=== PATIENT | female | born 1925 | race Caucasian/White ===

== ENCOUNTER 2016-07-21 09:03 | Inpatient (IN) | payer MEDICARE, BC ==
--- NOTE | 2016-07-21 09:39 | EDM.PDOC ---
ED HISTORY OF PRESENT ILLNESS - General Chief Complaint: Respiratory Problem Stated Complaint: SOB Time Seen by Provider: 07/21/16 09:24 Source of Information: Reports: Patient, Family History Limitations: Reports: No limitations - History of Present Illness INITIAL COMMENTS - FREE TEXT/NARRATIVE: History and physical: History of present illness: [89-year-old female is brought to the emergency room by her family member this morning. She complains of shortness of breath and increased swelling to her feet and lower legs. Her feet have been swollen for the past 3-4 days but shortness of breath began this morning. She wears home oxygen just at nighttime , and O2 sat was 99% on 2 L when she presented to the emergency room. She denies any chest pain, cough, sputum production, and difficulty breathing. Her appetite has been normal. She's had no problem with bowel or bladder. No abdominal pain. She's otherwise been well. No fever or chills, recent illness or infection.] Review of Systems: As per history of present illness and below otherwise all systems reviewed and negative. Past medical history: As per history of present illness and as reviewed below otherwise noncontributory. Surgical history: As per history of present illness and is reviewed below other diaz noncontributory. Social history: No reported history of drug or alcohol abuse. Family history: As per history of present illness and is reviewed below otherwise noncontributory. Physical exam: Gen.: Well-developed well-nourished elderly female in no acute distress. HEENT: Atraumatic, normocephalic. negative for conjunctival pallor or scleral icterus. mucous membranes moist. Lungs: Diminished throughout lung bases bilaterally, otherwise clear to auscultation. No wheezing rhonchi or rales are appreciated. Heart: S1-S2, regular rate and rhythm. negative for clicks, rubs, or JVD. Abdomen: Normoactive bowel sounds. Abdomen is soft, nondistended. is mildly tender over the suprapubic area with palpation. Negative for masses or hepatosplenomegaly. Negative for costovertebral tenderness. Pelvis: Stable, nontender. Genitourinary: Deferred. Rectal: Deferred. Extremities atraumatic, negative for cords or calf pain. Neurovascular unremarkable. Neuro: Awake, alert, oriented. Cranial nerves II through XII unremarkable. Cerebellum unremarkable. Motor and sensory unremarkable throughout. Exam nonfocal. Diagnostics: Chest x-ray, EKG, CK, troponin, UA, CBC, BMP, INR/PT, LDH, BNP. Impression: [CHF Renal Insufficiency UTI] Plan: [Lab results are discussed with patient and her family member. Offered inpatient treatment and monitoring with patient and family are in agreement. She will be admitted for IV diuretics, fluids and antibiotics. All patient's questions are answered and concerns are addressed. Use this note for inpatient H&P] Definitive disposition and diagnosis is appropriate pending reevaluation and review of above. - Related Data Allergies/ADRs: Allergies Allergy/AdvReac Type Severity Reaction Status Date / Time Sulfa (Sulfonamide Allergy Hives Verified 07/21/16 09:20 Antibiotics) Home Meds: Home Meds Acetaminophen [Tylenol Extra Strength] 500 mg PO ASDIRECTED PRN 01/17/16 [ History] Allopurinol [Zyloprim] 100 mg PO DAILY 01/17/16 [History] Aspirin [Adult Low Dose Aspirin EC] 81 mg PO DAILY 01/17/16 [History] Carvedilol 6.25 mg PO BID 01/17/16 [History] Fosinopril Sodium 20 tab PO DAILY 01/17/16 [History] Furosemide [Lasix] 80 mg PO BID 01/17/16 [History] Simvastatin [Zocor] 20 mg PO BEDTIME 01/17/16 [History] Multivit-Min/FA/Lycopene/Lut [Centrum Silver Tablet] 1 tab PO DAILY 07/21/16 [ History] Past Medical History Other Cardiovascular History: open heart surgery 8 years ago. Respiratory History: Reports: None Gastrointestinal History: Reports: Bowel obstruction Musculoskeletal History: Reports: Arthritis Neurological History: Reports: None Social & Family History - Family History Family Medical History: Noncontributory - Tobacco Use Smoking Status *Q: Never Smoker Second Hand Smoke Exposure: No - Recreational Drug Use Recreational Drug Use: No ED ROS GENERAL - Review of Systems Review Of Systems: ROS reveals no pertinent complaints other than HPI. ED EXAM, GENERAL - Physical Exam Exam: See Below Course - Vital Signs Last Recorded V/S: Last Vital Signs Temp 97.5 F 07/21/16 16:00 Pulse 72 07/21/16 16:00 Resp 20 07/21/16 16:00 BP 122/69 07/21/16 16:00 Pulse Ox 98 07/21/16 16:00 - Orders/Labs/Meds Orders: Active Orders 24 hr Category Date Time Status Chest 2V [CR] Stat Exams 07/21/16 09:16 Taken Medication Orders Acetaminophen (Tylenol) 650 mg PO Q4H PRN PRN Reason: Pain (Mild 1-3)/fever Allopurinol (Zyloprim) 100 mg PO DAILY [facility] Last Admin: 07/21/16 14:26 Dose: 100 mg Carvedilol (Coreg) 6.25 mg PO BID [facility] Last Admin: 07/21/16 14:29 Dose: 6.25 mg Docusate Sodium (Colace) 100 mg PO BID PRN PRN Reason: Constipation Last Admin: 07/21/16 14:26 Dose: 100 mg Enoxaparin Sodium (Lovenox) 40 mg SUBCUT Q24H [facility] Last Admin: 07/21/16 14:28 Dose: 40 mg Sodium Chloride (Normal Saline) 1,000 mls @ 75 mls/hr IV ASDIRECTED [facility] Last Admin: 07/21/16 14:22 Dose: 75 mls/hr Ibuprofen (Motrin) 400 mg PO Q6H PRN PRN Reason: Pain (mild 1-3) Lisinopril (Prinivil) 10 mg PO DAILY [facility] Last Admin: 07/21/16 14:27 Dose: 10 mg Ondansetron HCl (Zofran) 4 mg IV Q4H PRN PRN Reason: Nausea/Vomiting Simvastatin (Zocor) 20 mg PO BEDTIME [facility] Labs: Laboratory Tests 07/21/16 07/21/16 07/21/16 Range/Units 09:15 09:15 09:15 WBC 7.1 (5.0-10.0) 10^3/uL RBC 2.95 L (4.00-5.50) 10^6/uL Hgb 9.5 L (12.0-16.0) g/dL Hct 31.7 L (37.0-47.0) % MCV 107.5 H (82.0-94.0) fL MCH 32.2 H (27.0-32.0) pg MCHC 30.0 L (33.0-38.0) g/dL RDW Coeff of Sera 15.6 H (11.0-15.0) % Plt Count 120 L (150-400) 10^3/uL Neut % (Auto) 52.7 (35-85) % Lymph % (Auto) 33.8 (10-55) % [place] % (Auto) 11.6 (0-16) % Eos % (Auto) 1.8 (0-5) % Baso % (Auto) 0.1 (0-3) % Neut # (Auto) 3.71 (1.80-7.00) 10^3/uL Lymph # (Auto) 2.38 (1.00-4.80) 10^3/uL [place] # (Auto) 0.82 H (0.00-0.80) 10^3/uL Eos # (Auto) 0.13 (0.00-0.45) 10^3/uL Baso # (Auto) 0.01 10^3/uL PT 11.6 (9.7-12.3) SEC INR 1.07 (0.92-1.18) Sodium 145 (136-145) mEq/L Potassium 4.7 (3.5-5.0) mEq/L Chloride 103 (98-106) mEq/L Carbon Dioxide 35 H (21-32) mmol/L BUN 80 H* (7-18) mg/dL Creatinine 1.7 H (0.6-1.0) mg/dL Est Cr Clr Drug Dosing 16.11 mL/min Estimated GFR (MDRD) 28 L (>=60) mL/min Glucose 112 H (75-99) mg/dL Calcium 9.2 (8.4-10.1) mg/dL Lactate Dehydrogenase 156 (100-190) U/L Creatine Kinase 22 (21-215) U/L Troponin I 0.035 (0.00-0.06) ng/mL [id number]-[id number]-Rhuwzkzhyyc Pept 6971 H (0-1000) pg/nL Urine Color (YELLOW) Urine Appearance (CLEAR) Urine pH (4.5-8.0) Ur Specific [place] (1.003-1.020) Urine Protein (NEGATIVE) mg/dL Urine Glucose (UA) (NEGATIVE) mg/dL Urine Ketones (NEGATIVE) mg/dL Urine Occult Blood (NEGATIVE) Urine Nitrite (NEGATIVE) Urine Bilirubin (NEGATIVE) Urine Urobilinogen (0.2-1.0) EU/dL Ur Leukocyte Esterase (NEGATIVE) Urine RBC (0-5) /HPF Urine WBC (0-5) /HPF Ur Epithelial Cells (NOT SEEN) /HPF 07/21/16 Range/Units 09:45 WBC (5.0-10.0) 10^3/uL RBC (4.00-5.50) 10^6/uL Hgb (12.0-16.0) g/dL Hct (37.0-47.0) % MCV (82.0-94.0) fL MCH (27.0-32.0) pg MCHC (33.0-38.0) g/dL RDW Coeff of Sera (11.0-15.0) % Plt Count (150-400) 10^3/uL Neut % (Auto) (35-85) % Lymph % (Auto) (10-55) % [place] % (Auto) (0-16) % Eos % (Auto) (0-5) % Baso % (Auto) (0-3) % Neut # (Auto) (1.80-7.00) 10^3/uL Lymph # (Auto) (1.00-4.80) 10^3/uL [place] # (Auto) (0.00-0.80) 10^3/uL Eos # (Auto) (0.00-0.45) 10^3/uL Baso # (Auto) 10^3/uL PT (9.7-12.3) SEC INR (0.92-1.18) Sodium (136-145) mEq/L Potassium (3.5-5.0) mEq/L Chloride (98-106) mEq/L Carbon Dioxide (21-32) mmol/L BUN (7-18) mg/dL Creatinine (0.6-1.0) mg/dL Est Cr Clr Drug Dosing mL/min Estimated GFR (MDRD) (>=60) mL/min Glucose (75-99) mg/dL Calcium (8.4-10.1) mg/dL Lactate Dehydrogenase (100-190) U/L Creatine Kinase (21-215) U/L Troponin I (0.00-0.06) ng/mL [id number]-Xeesxrpcqta Pept (0-1000) pg/nL Urine Color Light yellow (YELLOW) Urine Appearance Cloudy (CLEAR) Urine pH 6.0 (4.5-8.0) Ur Specific [place] 1.010 (1.003-1.020) Urine Protein 100 H (NEGATIVE) mg/dL Urine Glucose (UA) Negative (NEGATIVE) mg/dL Urine Ketones Negative (NEGATIVE) mg/dL Urine Occult Blood Moderate H (NEGATIVE) Urine Nitrite Negative (NEGATIVE) Urine Bilirubin Negative (NEGATIVE) Urine Urobilinogen 0.2 (0.2-1.0) EU/dL Ur Leukocyte Esterase Large H (NEGATIVE) Urine RBC 10-20 H (0-5) /HPF Urine WBC Packed H (0-5) /HPF Ur Epithelial Cells Few H (NOT SEEN) /HPF Meds: Medications Generic Name Dose Route Start Last Admin Trade Name Freq PRN Reason Stop Dose Admin Acetaminophen 650 mg 07/21/16 12:55 Tylenol PO Q4H PRN Pain (Mild 1-3)/fever Allopurinol 100 mg 07/21/16 12:55 07/21/16 14:26 Zyloprim PO 100 mg DAILY ROBINA Administration Carvedilol 6.25 mg 07/21/16 12:55 07/21/16 14:29 Coreg PO 6.25 mg BID ROBINA Administration Docusate Sodium 100 mg 07/21/16 12:55 07/21/16 14:26 Colace PO 100 mg BID PRN Administration Constipation Enoxaparin Sodium 40 mg 07/21/16 12:55 07/21/16 14:28 Lovenox SUBCUT 40 mg Q24H ROBINA Administration Sodium Chloride 1,000 mls @ 75 mls/hr 07/21/16 12:55 07/21/16 14:22 Normal Saline IV 75 mls/hr ASDIRECTED ROBINA Administration Ibuprofen 400 mg 07/21/16 12:55 Motrin PO Q6H PRN Pain (mild 1-3) Lisinopril 10 mg 07/21/16 12:55 07/21/16 14:27 Prinivil PO 10 mg DAILY [facility]INA Administration Ondansetron HCl 4 mg 07/21/16 12:55 Zofran IV Q4H PRN Nausea/Vomiting Simvastatin 20 mg 07/21/16 20:00 Zocor PO BEDTIME [facility] Discontinued Medications Generic Name Dose Route Start Last Admin Trade Name Freq PRN Reason Stop Dose Admin Ceftriaxone Sodium 1 gm 07/21/16 12:55 07/21/16 14:24 Rocephin IV 07/21/16 12:56 1 gm ONETIME ONE Administration Furosemide 40 mg 07/21/16 12:55 07/21/16 14:29 Lasix IVPUSH 07/21/16 12:56 40 mg ONETIME ONE Administration Departure - Departure Time of Disposition: 12:30 Disposition: Admitted As Inpatient 68 Condition: fair Clinical Impression: Renal insufficiency CHF (congestive heart failure) Qualifiers: Congestive heart failure type: unspecified congestive heart failure type Congestive heart failure chronicity: unspecified congestive heart failure chronicity Qualified Code(s): I50.9 - Heart failure, unspecified UTI (urinary tract infection) Qualifiers: Urinary tract infection type: acute cystitis Hematuria presence: without hematuria Qualified Code(s): N30.00 - Acute cystitis without hematuria - My Orders Last 24 Hours: My Active Orders 07/21/16 09:16 Chest 2V [CR] Stat - Assessment/Plan Last 24 Hours: My Active Orders 07/21/16 09:16 Chest 2V [CR] Stat
[2016-07-21] MEDS ORDERED: Docusate Sodium 100 MG Cap PO PRN (12:55)
[2016-07-21] MEDS ORDERED: Ondansetron 4 MG/2 ML SDV IV PRN (12:55)
[2016-07-21] MEDS ORDERED: Ibuprofen 200 MG Tab PO PRN (12:55)
[2016-07-21] MEDS ORDERED: Furosemide 40 MG/4 ML VIAL IVPUSH ONE (12:55)
[2016-07-21] MEDS ORDERED: Lisinopril 10 MG Tab PO SCH (12:55)
[2016-07-21] MEDS ORDERED: cefTRIAXone 1 GM Vial IV ONE (12:55)
[2016-07-21] MEDS: Sodium Chloride 0.9% 1,000 ML IV SCH (14:22)
[2016-07-21] MEDS: Allopurinol 100 MG Tab PO SCH (14:26)
[2016-07-21] MEDS: Enoxaparin 40 MG/0.4 ML Syringe SUBCUT SCH (14:28)
[2016-07-21] MEDS: Carvedilol 6.25 MG Tab PO SCH ×2 (14:29→20:10)
[2016-07-21] MEDS: Simvastatin 20 MG Tab PO SCH (20:10)
[2016-07-22] MEDS: Sodium Chloride 0.9% 1,000 ML IV SCH (03:47)
[2016-07-22] MEDS: Carvedilol 6.25 MG Tab PO SCH ×2 (08:44→20:35)
[2016-07-22] MEDS: Allopurinol 100 MG Tab PO SCH (08:44)
[2016-07-22] MEDS: cefTRIAXone 1 GM Vial IV SCH (08:47)
[2016-07-22] MEDS ORDERED: Furosemide 40 MG/4 ML VIAL IVPUSH ONE (09:06)
[2016-07-22] MEDS: Enoxaparin 40 MG/0.4 ML Syringe SUBCUT SCH (13:14)
[2016-07-22] MEDS ORDERED: Bumetanide 1 MG Tab ONE (14:05)
[2016-07-22] MEDS ORDERED: Lisinopril 10 MG Tab PO SCH (14:15)
[2016-07-22] MEDS ORDERED: Nystatin Topical Powder 15 GM Bottle ONE (14:20)
--- NOTE | 2016-07-22 14:20 | PCM.PN ---
- General Info Date of Service: 07/22/16 Admission Dx/Problem (Free Text): CHF, renal insufficiency, UTI Subjective Update: Pt is more SOA this morning. Nursing staff report more diminished lung sounds. BNP is increased to 12,971. BUN is 77. Creatinine is 1.8. Na is up today at 148. - Review of Systems General: Reports: No Symptoms HEENT: Reports: no symptoms Pulmonary: Reports: shortness of breath, cough (wet), wheezing. Denies: sputum Cardiovascular: Reports: Edema (above knees, bilat). Denies: Chest Pain Gastrointestinal: Reports: No symptoms Genitourinary: Reports: frequency Neurological: Reports: No Symptoms Psychiatric: Reports: no symptoms - Patient Data Vitals - most recent: Last Vital Signs Temp 98.1 F 07/22/16 11:54 Pulse 73 07/22/16 11:54 Resp 20 07/22/16 11:54 BP 110/55 L 07/22/16 11:54 Pulse Ox 96 07/22/16 11:54 Weight - most recent: 160 lb 12.8 oz I&O - last 24 hours: Intake & Output 07/21/16 07/22/16 07/22/16 22:59 06:59 14:59 Intake Total 100 2200 Output Total 350 500 Balance -250 1700 Lab Results last 24 hrs: Laboratory Results - last 24 hr 07/22/16 07/22/16 Range/Units 06:50 06:50 WBC 5.5 (5.0-10.0) 10^3/uL RBC 2.63 L (4.00-5.50) 10^6/uL Hgb 8.6 L (12.0-16.0) g/dL Hct 29.1 L (37.0-47.0) % MCV 110.6 H (82.0-94.0) fL MCH 32.7 H (27.0-32.0) pg MCHC 29.6 L (33.0-38.0) g/dL RDW Coeff of Sera 15.9 H (11.0-15.0) % Plt Count 103 L (150-400) 10^3/uL Neut % (Auto) 53.9 (35-85) % Lymph % (Auto) 28.7 (10-55) % [place] % (Auto) 15.5 (0-16) % Eos % (Auto) 1.4 (0-5) % Baso % (Auto) 0.5 (0-3) % Neut # (Auto) 2.98 (1.80-7.00) 10^3/uL Lymph # (Auto) 1.59 (1.00-4.80) 10^3/uL [place] # (Auto) 0.86 H (0.00-0.80) 10^3/uL Eos # (Auto) 0.08 (0.00-0.45) 10^3/uL Baso # (Auto) 0.03 10^3/uL Sodium 148 H (136-145) mEq/L Potassium 4.4 (3.5-5.0) mEq/L Chloride 108 H (98-106) mEq/L Carbon Dioxide 34 H (21-32) mmol/L BUN 77 H* (7-18) mg/dL Creatinine 1.8 H (0.6-1.0) mg/dL Est Cr Clr Drug Dosing 15.22 mL/min Estimated GFR (MDRD) 26 L (>=60) mL/min Glucose 105 H (75-99) mg/dL Calcium 8.5 (8.4-10.1) mg/dL Total Bilirubin 0.4 (0.0-1.0) mg/dL AST 32 (15-37) U/L ALT 27 (12-78) U/L Alkaline Phosphatase 72 (46-116) U/L Daa-A-Bnumboxtahi Pept 47507 H (0-1000) pg/nL Total Protein 6.1 L (6.4-8.2) g/dL Albumin 3.0 L (3.4-5.0) g/dL Med Orders - Current: Current Medications Acetaminophen (Tylenol) 650 mg PO Q4H PRN PRN Reason: Pain (Mild 1-3)/fever Allopurinol (Zyloprim) 100 mg PO DAILY [facility] Last Admin: 07/22/16 08:44 Dose: 100 mg Bumetanide (Bumex) 2 mg .XX ONETIME ONE Stop: 07/22/16 14:06 Carvedilol (Coreg) 6.25 mg PO BID [facility] Last Admin: 07/22/16 08:44 Dose: 6.25 mg Ceftriaxone Sodium (Rocephin) 1 gm IV Q24H [facility] Last Admin: 03/26/17 08:47 Dose: 1 gm Docusate Sodium (Colace) 100 mg PO BID PRN PRN Reason: Constipation Last Admin: 07/21/16 14:26 Dose: 100 mg Enoxaparin Sodium (Lovenox) 40 mg SUBCUT Q24H [facility] Last Admin: 07/22/16 13:14 Dose: 40 mg Ibuprofen (Motrin) 400 mg PO Q6H PRN PRN Reason: Pain (mild 1-3) Lisinopril (Prinivil) 10 mg PO DAILY [facility] Nystatin (Nystop) 0 gm TOP BID [facility] Ondansetron HCl (Zofran) 4 mg IV Q4H PRN PRN Reason: Nausea/Vomiting Potassium Chloride (Klor-Con 10) 20 meq PO DAILY [facility] Simvastatin (Zocor) 20 mg PO BEDTIME [facility] Last Admin: 07/21/16 20:10 Dose: 20 mg Discontinued Medications Ceftriaxone Sodium (Rocephin) 1 gm IV ONETIME ONE Stop: 07/21/16 12:56 Last Admin: 07/21/16 14:24 Dose: 1 gm Furosemide (Lasix) 40 mg IVPUSH ONETIME ONE Stop: 07/21/16 12:56 Last Admin: 07/21/16 14:29 Dose: 40 mg Furosemide (Lasix) 80 mg IVPUSH ONETIME ONE Stop: 07/22/16 09:07 Last Admin: 07/22/16 09:26 Dose: 80 mg Sodium Chloride (Normal Saline) 1,000 mls @ 75 mls/hr IV ASDIRECTED [facility] Last Admin: 07/22/16 03:47 Dose: 75 mls/hr Lisinopril (Prinivil) 10 mg PO DAILY [facility] Last Admin: 07/21/16 14:27 Dose: 10 mg Nystatin (Nystop) Confirm Administered Dose 15 gm .ROUTE .STK-MED ONE Stop: 07/22/16 14:21 - Exam General: alert, oriented Neck: supple, no JVD Lungs: Decreased breath sounds (throughout. ), Wheezing Cardiovascular: Regular Rate, Regular Rhythm Abdomen: soft, no tenderness Extremities: edema Neurological: no new focal deficit Psy/Mental Status: alert, normal affect - Problem List Review Problem List Initiated/Reviewed/Updated: Yes - My Orders Last 24 Hours: My Active Orders 07/21/16 16:30 CULTURE URINE [RM] Stat 07/21/16 20:00 Simvastatin [Zocor] 20 mg PO BEDTIME 07/22/16 08:00 cefTRIAXone [Rocephin] 1 gm IV Q24H 07/22/16 09:08 Urinary Catheter Assessment [RC] ASDIRECTED 07/22/16 09:15 Spencer Catheter Insertion [Insert Urinary Catheter] [OM.PC] Q24H 07/22/16 14:05 Bumetanide [Bumex] 2 mg .XX ONETIME ONE 07/22/16 14:09 CBC WITH AUTO DIFF [HEME] Stat COMPREHENSIVE METABOLIC PN,CMP [CHEM] Stat 07/22/16 14:15 Lisinopril [Prinivil] 10 mg PO DAILY Potassium Chloride [Klor-Con 10] 20 meq PO DAILY 07/22/16 20:00 Nystatin [Nystop] 0 gm TOP BID 07/23/16 05:00 PRO B-TYPE NATRIUR PEPT,BNPPRO [CHEM] DAILY 07/24/16 05:00 PRO B-TYPE NATRIUR PEPT,BNPPRO [CHEM] DAILY 07/25/16 05:00 PRO B-TYPE NATRIUR PEPT,BNPPRO [CHEM] DAILY 07/26/16 05:00 PRO B-TYPE NATRIUR PEPT,BNPPRO [CHEM] DAILY - Assessment Assessment:: 1. CHF 2. Renal insufficiency 3. UTI - Plan Plan:: Given Lasix 80mg IV x 1 this a.m. Certainly concerned that patient may require more advanced diuresing, particularly in light of her impaired kidney function. IV Bumex is not on the formulary and not available at this facility. Will give 2mg po Bumex for now. Hold lisinopril today. Awaiting daughters return to hospital to discuss options. Discussed concerns with patient and offered transfer to a larger facility. She would prefer to remain in this facility until we have exhausted every option for treatment. 5:15 pm Discussed lab findings with daughter as well as limited options for treatment at this facility. She agrees with patient's wishes for treatment at [facility]. Will given Bumex 1mg at 6 p.m.
[2016-07-22] MEDS: Potassium Chloride 10 MEQ Tab.ER PO SCH (14:47)
[2016-07-22] MEDS ORDERED: Bumetanide 1 MG Tab PO ONE (14:56)
[2016-07-22] MEDS: Bumetanide 1 MG Tab PO SCH ×2 (18:05→20:35)
[2016-07-22] MEDS: Acetaminophen 325 MG Tab PO PRN (20:34)
[2016-07-22] MEDS: Simvastatin 20 MG Tab PO SCH (20:35)
[2016-07-22] MEDS: Nystatin Topical Powder 15 GM Bottle TOP SCH (20:36)
[2016-07-23] MEDS ORDERED: Furosemide 40 MG/4 ML VIAL IV SCH (08:00)
[2016-07-23] MEDS: Carvedilol 6.25 MG Tab PO SCH ×2 (08:17→19:31)
[2016-07-23] MEDS: Potassium Chloride 10 MEQ Tab.ER PO SCH (08:17)
[2016-07-23] MEDS: Nystatin Topical Powder 15 GM Bottle TOP SCH ×2 (08:18→19:32)
[2016-07-23] MEDS: Bumetanide 1 MG Tab PO SCH (08:18)
[2016-07-23] MEDS: cefTRIAXone 1 GM Vial IV SCH (08:18)
[2016-07-23] MEDS: Enoxaparin 30 MG/0.3 ML Syringe SUBCUT SCH (09:48)
[2016-07-23] MEDS: Furosemide 40 MG/4 ML VIAL IV SCH ×2 (09:50→15:53)
--- NOTE | 2016-07-23 13:56 | PCM.PN ---
- General Info Date of Service: 07/23/16 Admission Dx/Problem (Free Text): CHF, renal insufficiency, UTI Functional Status: Reports: pain controlled, tolerating diet - Review of Systems General: Reports: Weakness, Fatigue. Denies: Fever HEENT: Denies: ear pain, sinus congestion, rhinitis Pulmonary: Reports: shortness of breath, cough, wheezing Cardiovascular: Reports: Edema. Denies: Chest Pain Gastrointestinal: Denies: Abdominal pain, Nausea, Vomiting Genitourinary: Reports: other (catheter) Musculoskeletal: Reports: no symptoms Skin: Reports: no symptoms Neurological: Reports: No Symptoms - Patient Data Vitals - most recent: Last Vital Signs Temp 97.9 F 07/23/16 11:49 Pulse 71 07/23/16 11:49 Resp 20 07/23/16 11:49 BP 120/47 L 07/23/16 11:49 Pulse Ox 96 07/23/16 11:49 Weight - most recent: 158 lb 6.4 oz I&O - last 24 hours: Intake & Output 07/22/16 07/23/16 07/23/16 22:59 06:59 14:59 Intake Total 365 200 Output Total 150 500 450 Balance 215 -300 -450 Lab Results last 24 hrs: Laboratory Results - last 24 hr 07/23/16 07/23/16 07/23/16 Range/Units 06:55 06:55 06:55 WBC 7.5 (5.0-10.0) 10^3/uL RBC 2.65 L (4.00-5.50) 10^6/uL Hgb 8.6 L (12.0-16.0) g/dL Hct 30.2 L (37.0-47.0) % MCV 114.0 H (82.0-94.0) fL MCH 32.5 H (27.0-32.0) pg MCHC 28.5 L (33.0-38.0) g/dL RDW Coeff of Sera 15.9 H (11.0-15.0) % Plt Count 101 L (150-400) 10^3/uL Neut % (Auto) 58.6 (35-85) % Lymph % (Auto) 26.0 (10-55) % [place] % (Auto) 13.4 (0-16) % Eos % (Auto) 1.7 (0-5) % Baso % (Auto) 0.3 (0-3) % Neut # (Auto) 4.41 (1.80-7.00) 10^3/uL Lymph # (Auto) 1.96 (1.00-4.80) 10^3/uL [place] # (Auto) 1.01 H (0.00-0.80) 10^3/uL Eos # (Auto) 0.13 (0.00-0.45) 10^3/uL Baso # (Auto) 0.02 10^3/uL Sodium 149 H (136-145) mEq/L Potassium 4.9 (3.5-5.0) mEq/L Chloride 109 H (98-106) mEq/L Carbon Dioxide 37 H (21-32) mmol/L BUN 78 H* (7-18) mg/dL Creatinine 1.9 H (0.6-1.0) mg/dL Est Cr Clr Drug Dosing 14.42 mL/min Estimated GFR (MDRD) 25 L (>=60) mL/min Glucose 122 H (75-99) mg/dL Calcium 8.7 (8.4-10.1) mg/dL Total Bilirubin 0.3 (0.0-1.0) mg/dL AST 31 (15-37) U/L ALT 27 (12-78) U/L Alkaline Phosphatase 72 (46-116) U/L C-Reactive Protein 0.9 H (0.2-0.8) mg/dL Enx-U-Raauxkxgelw Pept 48191 H (0-1000) pg/nL Total Protein 6.4 (6.4-8.2) g/dL Albumin 3.0 L (3.4-5.0) g/dL Vitamin B12 928 (193-986) PG/ML Folate > 20 (>8.6) NG/ML Fabiano Results last 24 hrs: Microbiology 07/21/16 16:30 Urine Culture - Final Urine, Clean Catch Klebsiella Oxytoca Med Orders - Current: Current Medications Acetaminophen (Tylenol) 650 mg PO Q4H PRN PRN Reason: Pain (Mild 1-3)/fever Last Admin: 07/22/16 20:34 Dose: 650 mg Carvedilol (Coreg) 6.25 mg PO BID [facility]INA Last Admin: 07/23/16 08:17 Dose: 6.25 mg Ceftriaxone Sodium (Rocephin) 1 gm IV Q24H [facility] Last Admin: 07/23/16 08:18 Dose: 1 gm Docusate Sodium (Colace) 100 mg PO BID PRN PRN Reason: Constipation Last Admin: 07/21/16 14:26 Dose: 100 mg Enoxaparin Sodium (Lovenox) 30 mg SUBCUT Q24H [facility] Last Admin: 07/23/16 09:48 Dose: 30 mg Furosemide (Lasix) 40 mg IV BIDDIURETIC [facility] Last Admin: 07/23/16 09:50 Dose: 40 mg Nystatin (Nystop) 0 gm TOP BID [facility] Last Admin: 07/23/16 08:18 Dose: 1 applic Ondansetron HCl (Zofran) 4 mg IV Q4H PRN PRN Reason: Nausea/Vomiting Potassium Chloride (Klor-Con 10) 20 meq PO DAILY [facility] Last Admin: 07/23/16 08:17 Dose: 20 meq Simvastatin (Zocor) 20 mg PO BEDTIME [facility] Last Admin: 07/22/16 20:35 Dose: 20 mg Discontinued Medications Allopurinol (Zyloprim) 100 mg PO DAILY [facility] Last Admin: 07/22/16 08:44 Dose: 100 mg Bumetanide (Bumex) 2 mg .XX ONETIME ONE Stop: 07/22/16 14:06 Last Admin: 07/22/16 15:15 Dose: Not Given Bumetanide (Bumex) 2 mg PO ONETIME ONE Stop: 07/22/16 14:57 Last Admin: 07/22/16 15:13 Dose: 2 mg Bumetanide (Bumex) 1 mg PO TID [facility] Last Admin: 07/23/16 08:18 Dose: 1 mg Ceftriaxone Sodium (Rocephin) 1 gm IV ONETIME ONE Stop: 07/21/16 12:56 Last Admin: 07/21/16 14:24 Dose: 1 gm Enoxaparin Sodium (Lovenox) 40 mg SUBCUT Q24H [facility] Last Admin: 07/22/16 13:14 Dose: 40 mg Furosemide (Lasix) 40 mg IVPUSH ONETIME ONE Stop: 07/21/16 12:56 Last Admin: 07/21/16 14:29 Dose: 40 mg Furosemide (Lasix) 80 mg IVPUSH ONETIME ONE Stop: 07/22/16 09:07 Last Admin: 07/22/16 09:26 Dose: 80 mg Sodium Chloride (Normal Saline) 1,000 mls @ 75 mls/hr IV ASDIRECTED [facility] Last Admin: 07/22/16 03:47 Dose: 75 mls/hr Ibuprofen (Motrin) 400 mg PO Q6H PRN PRN Reason: Pain (mild 1-3) Lisinopril (Prinivil) 10 mg PO DAILY [facility] Last Admin: 07/21/16 14:27 Dose: 10 mg Lisinopril (Prinivil) 10 mg PO DAILY [facility] Last Admin: 07/22/16 14:14 Dose: Not Given Nystatin (Nystop) Confirm Administered Dose 15 gm .ROUTE .STK-MED ONE Stop: 07/22/16 14:21 Last Admin: 07/22/16 14:47 Dose: 1 applic - Exam General: alert, oriented HEENT: Mucous membr. moist/pink Neck: supple Lungs: Decreased breath sounds, Crackles, Wheezing Cardiovascular: Regular Rate, Regular Rhythm Abdomen: bowel sounds present, soft, no tenderness Extremities: edema (2-3+ pitting) Skin: warm, dry Neurological: no new focal deficit - Problem List & Annotations (1) CHF (congestive heart failure) SNOMED Code(s): 41849702 Code(s): I50.9 - HEART FAILURE, UNSPECIFIED Status: Acute Priority: High Current Visit: Yes Qualifiers: Congestive heart failure type: unspecified congestive heart failure type Congestive heart failure chronicity: acute on chronic Qualified Code(s): I50.9 - Heart failure, unspecified (2) Comfort measures only status SNOMED Code(s): 89807347702953 Code(s): Z51.5 - ENCOUNTER FOR PALLIATIVE CARE Status: Acute Priority: High Current Visit: Yes (3) Renal insufficiency SNOMED Code(s): 167101140 Code(s): N28.9 - DISORDER OF KIDNEY AND URETER, UNSPECIFIED Status: Acute Current Visit: Yes (4) UTI (urinary tract infection) SNOMED Code(s): 70227723 Code(s): N39.0 - URINARY TRACT INFECTION, SITE NOT SPECIFIED Status: Acute Current Visit: Yes - Problem List Review Problem List Initiated/Reviewed/Updated: Yes - My Orders Last 24 Hours: My Active Orders 07/23/16 08:00 Furosemide [Lasix] 40 mg IV BIDDIURETIC 07/23/16 08:30 Comfort Measures [OM.PC] Routine - Assessment Assessment:: 1. CHF 2. Renal insufficiency 3. UTI - Plan Plan:: 07-23-2016 Patient continues to have shortness of breath but she states she feels slightly better. Her lung sounds continue to have wheezing and crackles, decreased air exchange. Oxygen sats are 97-98% on 2 liters. Patient weight had gone up 4# after admission due to fluid overload, down 2# from that. [place] [address]. Her creatinine continues to be high at 1.9 but stable in comparison to [facility] history of renal insufficiency. Last echo was done in 2011 which showed a EF of 50% but due to her age and refusal to see cardiology or change in care, no further echo will be done and symptoms will be [place] [address] despite diuretics. Did discuss status with family. They had discussed transfer with [facility] over the weekend but patient herself would prefer to stay here. Is on comfort cares as well due to chronic medical conditions and age. Will continue with monitoring labs, start IV Lasix BID and follow. Dr. Singletary is aware of status and agrees with this plan.
[2016-07-23] MEDS: Simvastatin 20 MG Tab PO SCH (19:32)
[2016-07-23] MEDS: Acetaminophen 325 MG Tab PO PRN (19:36)
[2016-07-24] MEDS: cefTRIAXone 1 GM Vial IV SCH (07:38)
[2016-07-24] MEDS: Furosemide 40 MG/4 ML VIAL IV SCH (07:38)
[2016-07-24] MEDS: Nystatin Topical Powder 15 GM Bottle TOP SCH (07:39)
[2016-07-24] MEDS: Enoxaparin 30 MG/0.3 ML Syringe SUBCUT SCH (07:39)
[2016-07-24] MEDS: Potassium Chloride 10 MEQ Tab.ER PO SCH (07:39)
[2016-07-24] MEDS: Carvedilol 6.25 MG Tab PO SCH (07:40)
[2016-07-24 07:41] VITALS: BP 134/62
--- NOTE | 2016-07-24 21:46 | PCM.DCSUM1 ---
Discharge Summary - Hospital Course Free Text/Narrative:: Patient admitted to inpatient services this weekend for increased shortness of breath. Presented with CHF and renal insufficiency. Her initial BUN was high so fluids were given. However, ProBNP doubled overnight as a result. IV Lasix was given with minimal response so was switched to oral Bumex. Did have a 2# weight reduction with that. Creatinine did not improve over the last 4 days. She does have more air exchange, less wheezing but still has crackles in her bases. Edema 2+ pitting yet in her lower extremities. Potassium increased today to 5.4, BUN 86, Creatinine 2.2. ProBNP is slightly improved. - Discharge Data Discharge Date: 07/24/16 Discharge Disposition: DC/Tfer W/I Hosp To [place] [id number] Condition: Fair - Discharge Diagnosis/Problem(s) (1) CHF (congestive heart failure) SNOMED Code(s): 00161024 ICD Code: I50.9 - HEART FAILURE, UNSPECIFIED Status: Acute Priority: High Qualifiers: Congestive heart failure type: unspecified congestive heart failure type Congestive heart failure chronicity: acute on chronic Qualified Code(s): I50.9 - Heart failure, unspecified (2) Comfort measures only status SNOMED Code(s): 57772504653084 ICD Code: Z51.5 - ENCOUNTER FOR PALLIATIVE CARE Status: Acute Priority: High (3) Renal insufficiency SNOMED Code(s): 469415933 ICD Code: N28.9 - DISORDER OF KIDNEY AND URETER, UNSPECIFIED Status: Acute (4) UTI (urinary tract infection) SNOMED Code(s): 10005638 ICD Code: N39.0 - URINARY TRACT INFECTION, SITE NOT SPECIFIED Status: Acute - Patient Summary/Data Complications: none Hospital Course: Will transfer to [facility] bed. Hold her Lisinopril. Hold the potassium. Reduce her Lasix to 80 mg daily. Continue to follow labs. PT, Comfort measures due to ongoing CHF with limited response. - Discharge Plan Home Medications: Home Meds Acetaminophen [Tylenol Extra Strength] 500 mg PO ASDIRECTED PRN 01/17/16 [ History] Allopurinol [Zyloprim] 100 mg PO DAILY 01/17/16 [History] Aspirin [Adult Low Dose Aspirin EC] 81 mg PO DAILY 01/17/16 [History] Carvedilol 6.25 mg PO BID 01/17/16 [History] Fosinopril Sodium 20 tab PO DAILY 01/17/16 [History] Furosemide [Lasix] 80 mg PO BID 01/17/16 [History] Simvastatin [Zocor] 20 mg PO BEDTIME 01/17/16 [History] Multivit-Min/FA/Lycopene/Lut [Centrum Silver Tablet] 1 tab PO DAILY 07/21/16 [ History] Forms: ED Department Discharge Referrals: Marcelo Singletary MD [Primary Care Provider] - - Discharge Summary/Plan Comment DC Time >30 min.: Yes Discharge Summary/Plan Comment: Transfer to swing bed. Ongoing labs, PT, oxygen as needed, comfort measures due to ongoing CHF/shortness of breath and renal insufficiency. - General Info Date of Service: 07/24/16 Admission Dx/Problem (Free Text: CHF, renal insufficiency, UTI Functional Status: Reports: pain controlled, tolerating diet. Denies: ambulating - Review of Systems General: Reports: Weakness, Fatigue. Denies: Fever HEENT: Reports: no symptoms Pulmonary: Reports: shortness of breath. Denies: cough, wheezing Cardiovascular: Reports: Edema. Denies: Chest Pain, Lightheadedness Gastrointestinal: Denies: Abdominal pain, Constipation, Diarrhea, Nausea, Vomiting Genitourinary: Reports: other (catheter) Musculoskeletal: Reports: no symptoms Skin: Reports: no symptoms - Patient Data Vitals - Most Recent: Last Vital Signs Temp 97.8 F 07/24/16 08:00 Pulse 72 07/24/16 08:00 Resp 18 07/24/16 08:00 BP 134/62 07/24/16 08:00 Pulse Ox 99 07/24/16 08:00 Weight - Most Recent: 160 lb 11.2 oz I&O - Last 24 hours: Intake & Output 07/24/16 07/24/16 07/24/16 06:59 14:59 22:59 Intake Total 150 Output Total 300 Balance -150 Lab Results - Last 24 hrs: Laboratory Results - last 24 hr 07/24/16 07/24/16 Range/Units 05:11 07:00 WBC 6.7 (5.0-10.0) 10^3/uL RBC 2.53 L (4.00-5.50) 10^6/uL Hgb 8.2 L (12.0-16.0) g/dL Hct 29.0 L (37.0-47.0) % MCV 114.6 H (82.0-94.0) fL MCH 32.4 H (27.0-32.0) pg MCHC 28.3 L (33.0-38.0) g/dL RDW Coeff of Sera 15.9 H (11.0-15.0) % Plt Count 84 L (150-400) 10^3/uL Neut % (Auto) 55.2 (35-85) % Lymph % (Auto) 27.6 (10-55) % [place] % (Auto) 14.4 (0-16) % Eos % (Auto) 2.6 (0-5) % Baso % (Auto) 0.2 (0-3) % Neut # (Auto) 3.68 (1.80-7.00) 10^3/uL Lymph # (Auto) 1.84 (1.00-4.80) 10^3/uL [place] # (Auto) 0.96 H (0.00-0.80) 10^3/uL Eos # (Auto) 0.17 (0.00-0.45) 10^3/uL Baso # (Auto) 0.01 10^3/uL Sodium 150 H (136-145) mEq/L Potassium 5.4 H (3.5-5.0) mEq/L Chloride 110 H (98-106) mEq/L Carbon Dioxide 36 H (21-32) mmol/L BUN 86 H* (7-18) mg/dL Creatinine 2.2 H (0.6-1.0) mg/dL Est Cr Clr Drug Dosing 12.45 mL/min Estimated GFR (MDRD) 21 L (>=60) mL/min Glucose 114 H (75-99) mg/dL Calcium 8.3 L (8.4-10.1) mg/dL [id number] Pept 63024 H (0-1000) pg/nL Med Orders - Current: Current Medications Discontinued Medications Acetaminophen (Tylenol) 650 mg PO Q4H PRN PRN Reason: Pain (Mild 1-3)/fever Last Admin: 07/23/16 19:36 Dose: 650 mg Allopurinol (Zyloprim) 100 mg PO DAILY [facility] Last Admin: 07/22/16 08:44 Dose: 100 mg Bumetanide (Bumex) 2 mg .XX ONETIME ONE Stop: 07/22/16 14:06 Last Admin: 07/22/16 15:15 Dose: Not Given Bumetanide (Bumex) 2 mg PO ONETIME ONE Stop: 07/22/16 14:57 Last Admin: 07/22/16 15:13 Dose: 2 mg Bumetanide (Bumex) 1 mg PO TID [facility] Last Admin: 07/23/16 08:18 Dose: 1 mg Carvedilol (Coreg) 6.25 mg PO BID [facility] Last Admin: 07/24/16 07:40 Dose: 6.25 mg Ceftriaxone Sodium (Rocephin) 1 gm IV ONETIME ONE Stop: 07/21/16 12:56 Last Admin: 07/21/16 14:24 Dose: 1 gm Ceftriaxone Sodium (Rocephin) 1 gm IV Q24H [facility] Last Admin: 07/24/16 07:38 Dose: 1 gm Docusate Sodium (Colace) 100 mg PO BID PRN PRN Reason: Constipation Last Admin: 07/21/16 14:26 Dose: 100 mg Enoxaparin Sodium (Lovenox) 40 mg SUBCUT Q24H [facility] Last Admin: 07/22/16 13:14 Dose: 40 mg Enoxaparin Sodium (Lovenox) 30 mg SUBCUT Q24H [facility] Last Admin: 07/24/16 07:39 Dose: 30 mg Furosemide (Lasix) 40 mg IVPUSH ONETIME ONE Stop: 07/21/16 12:56 Last Admin: 07/21/16 14:29 Dose: 40 mg Furosemide (Lasix) 80 mg IVPUSH ONETIME ONE Stop: 07/22/16 09:07 Last Admin: 07/22/16 09:26 Dose: 80 mg Furosemide (Lasix) 40 mg IV BIDDIURETIC [facility] Last Admin: 07/24/16 07:38 Dose: 40 mg Sodium Chloride (Normal Saline) 1,000 mls @ 75 mls/hr IV ASDIRECTED [facility] Last Admin: 07/22/16 03:47 Dose: 75 mls/hr Ibuprofen (Motrin) 400 mg PO Q6H PRN PRN Reason: Pain (mild 1-3) Lisinopril (Prinivil) 10 mg PO DAILY [facility] Last Admin: 07/21/16 14:27 Dose: 10 mg Lisinopril (Prinivil) 10 mg PO DAILY [facility] Last Admin: 07/22/16 14:14 Dose: Not Given Nystatin (Nystop) 0 gm TOP BID [facility] Last Admin: 07/24/16 07:39 Dose: 1 applic Nystatin (Nystop) Confirm Administered Dose 15 gm .ROUTE .STK-MED ONE Stop: 07/22/16 14:21 Last Admin: 07/22/16 14:47 Dose: 1 applic Ondansetron HCl (Zofran) 4 mg IV Q4H PRN PRN Reason: Nausea/Vomiting Potassium Chloride (Klor-Con 10) 20 meq PO DAILY [facility] Last Admin: 07/24/16 07:39 Dose: 20 meq Simvastatin (Zocor) 20 mg PO BEDTIME [facility] Last Admin: 07/23/16 19:32 Dose: 20 mg - Exam Quality Assessment: Reports: supplemental oxygen General: Reports: alert, oriented HEENT: Reports: Mucous membr. moist/pink Neck: Reports: supple Lungs: Reports: Crackles Cardiovascular: Reports: Regular Rate, Regular Rhythm Abdomen: Reports: bowel sounds present, soft, no tenderness Extremities: Reports: edema Neurological: Reports: no new focal deficit Psy/Mental Status: Reports: alert, normal affect, normal mood *Q Meaningful Use (DIS) - VTE *Q VTE Criteria *Q: - Stroke *Q Stroke Criteria *Q: - AMI *Q AMI Criteria *Q:
== END 2016-07-24 09:45 | disposition swing bed (61) | DRG 292 ==
LOC: CC.ED 09:03 → UNDOADMIN 10:50 → CC.MS 10:50
PROVIDERS: ADMIT Nurse Practitioner Family; ATTEND Family Medicine
DX: I50.9 Heart failure, unspecified (principal); N18.9 Chronic kidney disease, unspecified; N30.00 Acute cystitis without hematuria; N39.0 Urinary tract infection, site not specified; N28.9 Disorder of kidney and ureter, unspecified; M19.90 Unspecified osteoarthritis, unspecified site; Z79.82 Long term (current) use of aspirin; Z99.81 Dependence on supplemental oxygen; Z79.899 Other long term (current) drug therapy; Z88.2 Allergy status to sulfonamides; Z51.5 Encounter for palliative care
CPT/HCPCS: 36415; 51702; 71020; 80048; 80053; 81001; 82550; 82607; 82746; 83615; 83880; 84484; 85025; 85610; 86140; 87086; 87088; 87186; 93005; 93010; 97110-GP; 97161-GP; 99285; A9270-GY; J0696; J1650; J1940; J7030

== ENCOUNTER 2016-07-24 09:49 | Inpatient (IN) | payer MEDICARE, BC ==
[2016-07-24] MEDS ORDERED: Docusate Sodium 100 MG Cap PO PRN (12:05)
[2016-07-24] MEDS ORDERED: Ondansetron 4 MG/2 ML SDV IV PRN (12:05)
[2016-07-24] MEDS ORDERED: Lisinopril 10 MG Tab PO SCH (16:00)
[2016-07-24] MEDS ORDERED: Furosemide 80 MG Tab PO SCH (16:00)
[2016-07-24] MEDS: Nystatin Topical Powder 15 GM Bottle TOP SCH (19:52)
[2016-07-24] MEDS: Carvedilol 6.25 MG Tab PO SCH (19:52)
[2016-07-24] MEDS: Simvastatin 20 MG Tab PO SCH (19:52)
[2016-07-24] MEDS: Acetaminophen 325 MG Tab PO PRN (21:29)
[2016-07-25] MEDS ORDERED: Potassium Chloride 10 MEQ Tab.ER PO SCH (08:00)
[2016-07-25] MEDS: Enoxaparin 30 MG/0.3 ML Syringe SUBCUT SCH (08:55)
[2016-07-25] MEDS: cefTRIAXone 1 GM Vial IV SCH (08:55)
[2016-07-25] MEDS: Carvedilol 6.25 MG Tab PO SCH ×2 (08:56→19:45)
[2016-07-25] MEDS: Nystatin Topical Powder 15 GM Bottle TOP SCH ×2 (08:56→19:45)
[2016-07-25] MEDS: Furosemide 80 MG Tab PO SCH (08:56)
[2016-07-25] MEDS ORDERED: Furosemide 40 MG/4 ML VIAL IVPUSH ONE (18:11)
[2016-07-25] MEDS ORDERED: Morphine 2 MG/ML Syringe IVPUSH SCH (18:15)
--- NOTE | 2016-07-25 19:08 | PCM.PN ---
- General Info Date of Service: 07/25/16 Functional Status: Denies: tolerating diet, ambulating - Review of Systems General: Reports: Weakness Pulmonary: Reports: shortness of breath, wheezing Cardiovascular: Reports: Edema. Denies: Chest Pain, Lightheadedness - Patient Data Vitals - most recent: Last Vital Signs Temp 98.8 F 07/25/16 08:00 Pulse 78 07/25/16 18:00 Resp 1 L 07/25/16 18:00 BP 119/57 L 07/25/16 08:56 Pulse Ox 94 L 07/25/16 18:00 Weight - most recent: 161 lb 3.2 oz I&O - last 24 hours: Intake & Output 07/25/16 07/25/16 07/25/16 06:59 14:59 22:59 Intake Total 200 1060 Output Total 300 400 Balance -100 660 Lab Results last 24 hrs: Laboratory Results - last 24 hr 07/25/16 07/25/16 Range/Units 06:55 06:55 WBC 6.8 (5.0-10.0) 10^3/uL RBC 2.57 L (4.00-5.50) 10^6/uL Hgb 8.3 L (12.0-16.0) g/dL Hct 29.5 L (37.0-47.0) % MCV 114.8 H (82.0-94.0) fL MCH 32.3 H (27.0-32.0) pg MCHC 28.1 L (33.0-38.0) g/dL RDW Coeff of Sera 15.7 H (11.0-15.0) % Plt Count 92 L (150-400) 10^3/uL Neut % (Auto) 61.2 (35-85) % Lymph % (Auto) 24.3 (10-55) % [place] % (Auto) 11.3 (0-16) % Eos % (Auto) 3.1 (0-5) % Baso % (Auto) 0.1 (0-3) % Neut # (Auto) 4.15 (1.80-7.00) 10^3/uL Lymph # (Auto) 1.65 (1.00-4.80) 10^3/uL [place] # (Auto) 0.77 (0.00-0.80) 10^3/uL Eos # (Auto) 0.21 (0.00-0.45) 10^3/uL Baso # (Auto) 0.01 10^3/uL Sodium 148 H (136-145) mEq/L Potassium 5.7 H (3.5-5.0) mEq/L Chloride 110 H (98-106) mEq/L Carbon Dioxide 36 H (21-32) mmol/L BUN 88 H* (7-18) mg/dL Creatinine 2.0 H (0.6-1.0) mg/dL Est Cr Clr Drug Dosing 13.70 mL/min Estimated GFR (MDRD) 23 L (>=60) mL/min Glucose 120 H (75-99) mg/dL Calcium 8.5 (8.4-10.1) mg/dL Icv-[id number]-[id number] Pept 31626 H (0-1000) pg/nL Med Orders - Current: Current Medications Acetaminophen (Tylenol) 650 mg PO Q4H PRN PRN Reason: Pain (Mild 1-3)/fever Last Admin: 07/24/16 21:29 Dose: 650 mg Carvedilol (Coreg) 6.25 mg PO BID [facility] Last Admin: 07/25/16 08:56 Dose: 6.25 mg Ceftriaxone Sodium (Rocephin) 1 gm IV Q24H [facility] Last Admin: 07/25/16 08:55 Dose: 1 gm Docusate Sodium (Colace) 100 mg PO BID PRN PRN Reason: Constipation Enoxaparin Sodium (Lovenox) 30 mg SUBCUT Q24H [facility] Last Admin: 07/25/16 08:55 Dose: 30 mg Furosemide (Lasix) 80 mg PO DAILY [facility] Last Admin: 07/25/16 08:56 Dose: 80 mg Lisinopril (Prinivil) 10 mg PO DAILY [facility] Morphine Sulfate (Morphine) 1 mg IVPUSH Q2H [facility] Last Admin: 07/25/16 18:28 Dose: 1 mg Nystatin (Nystop) 0 gm TOP BID [facility] Last Admin: 07/25/16 08:56 Dose: 1 applic Ondansetron HCl (Zofran) 4 mg IV Q4H PRN PRN Reason: Nausea/Vomiting Potassium Chloride (Klor-Con 10) 20 meq PO DAILY [facility] Simvastatin (Zocor) 20 mg PO BEDTIME [facility] Last Admin: 07/24/16 19:52 Dose: 20 mg Discontinued Medications Furosemide (Lasix) 80 mg PO BIDDIURETIC [facility] Furosemide (Lasix) 40 mg IVPUSH ONETIME ONE Stop: 07/25/16 18:12 Last Admin: 07/25/16 18:30 Dose: 40 mg - Exam Quality Assessment: supplemental oxygen General: alert, oriented Lungs: Decreased breath sounds, Crackles, Wheezing Cardiovascular: Regular Rate, Regular Rhythm Extremities: edema (3+ pitting edema bilateral) - Problem List & Annotations (1) CHF (congestive heart failure) SNOMED Code(s): 35833156 Code(s): I50.9 - HEART FAILURE, UNSPECIFIED Status: Acute Priority: High Current Visit: Yes Qualifiers: (2) Comfort measures only status SNOMED Code(s): 43156995585876 Code(s): Z51.5 - ENCOUNTER FOR PALLIATIVE CARE Status: Acute Priority: High Current Visit: Yes - Problem List Review Problem List Initiated/Reviewed/Updated: Yes - My Orders Last 24 Hours: My Active Orders 07/24/16 20:00 Carvedilol [Coreg] 6.25 mg PO BID Nystatin [Nystop] 0 gm TOP BID Simvastatin [Zocor] 20 mg PO BEDTIME 07/25/16 08:00 Enoxaparin [Lovenox] 30 mg SUBCUT Q24H Furosemide [Lasix] 80 mg PO DAILY Potassium Chloride [Klor-Con 10] 20 meq PO DAILY cefTRIAXone [Rocephin] 1 gm IV Q24H 07/25/16 18:15 Morphine 1 mg IVPUSH Q2H 07/26/16 05:00 PRO B-TYPE NATRIUR PEPT,BNPPRO [CHEM] DAILY 07/26/16 05:11 BASIC METABOLIC PANEL,BMP [CHEM] DAILY CBC WITH AUTO DIFF [HEME] AM 07/27/16 05:11 BASIC METABOLIC PANEL,BMP [CHEM] DAILY - Assessment Assessment:: CHF Comfort Measures - Plan Plan:: Called to patient's room by nursing due to increased shortness of breath. Patient refusing to eat as she states increases shortness of breath. More wheezing and congestion. Edema 3+ pitting bilateral. Discussed with patient about change/worsening of status. Difficulty controlling CHF and renal failure. Labs have not improved, potassium was higher today. Patient again states she prefers to not be transferred. Did order morphine and Lasix IV now. Did discuss with daughter. She is aware of status and knows mother does not want to be transferred and she respects her mother's decision. Contacted Dr. Singletary. No other orders received. Will continue to monitor.
[2016-07-25] MEDS: Simvastatin 20 MG Tab PO SCH (19:46)
[2016-07-25] MEDS: Acetaminophen 325 MG Tab PO PRN (21:15)
[2016-07-25] MEDS: Morphine 2 MG/ML Syringe IVPUSH PRN (21:17)
[2016-07-26] MEDS: Carvedilol 6.25 MG Tab PO SCH (07:34)
[2016-07-26] MEDS: Furosemide 80 MG Tab PO SCH (07:34)
[2016-07-26] MEDS: cefTRIAXone 1 GM Vial IV SCH (07:35)
[2016-07-26] MEDS: Enoxaparin 30 MG/0.3 ML Syringe SUBCUT SCH (07:35)
[2016-07-26] MEDS: Nystatin Topical Powder 15 GM Bottle TOP SCH ×2 (07:35→20:07)
[2016-07-26] MEDS ORDERED: Sodium Polystyrene Sulfonate 15 GM/60 ML Susp 60 ML Bot PO ONE (08:53)
[2016-07-26] MEDS: Carvedilol 3.125 MG Tab PO SCH (20:07)
[2016-07-26] MEDS: Furosemide 40 MG/4 ML VIAL IVPUSH SCH (20:08)
[2016-07-26] MEDS: Simvastatin 20 MG Tab PO SCH (20:08)
[2016-07-27] MEDS: cefTRIAXone 1 GM Vial IV SCH (07:44)
[2016-07-27] MEDS: Carvedilol 3.125 MG Tab PO SCH ×2 (07:44→19:33)
[2016-07-27] MEDS: Furosemide 40 MG/4 ML VIAL IVPUSH SCH (07:44)
[2016-07-27] MEDS: Enoxaparin 30 MG/0.3 ML Syringe SUBCUT SCH (07:44)
[2016-07-27] MEDS: Nystatin Topical Powder 15 GM Bottle TOP SCH ×2 (07:44→19:32)
[2016-07-27] MEDS ORDERED: Furosemide 20 MG/2 ML VIAL IVPUSH ONE (09:30)
[2016-07-27] MEDS: Furosemide 100 MG/10 ML SDV IVPUSH SCH (19:25)
[2016-07-27] MEDS: Simvastatin 20 MG Tab PO SCH (19:33)
[2016-07-27] MEDS: Acetaminophen 325 MG Tab PO PRN (22:11)
[2016-07-28] MEDS: Furosemide 100 MG/10 ML SDV IVPUSH SCH ×2 (07:47→19:38)
[2016-07-28] MEDS: cefTRIAXone 1 GM Vial IV SCH (07:47)
[2016-07-28] MEDS: Carvedilol 3.125 MG Tab PO SCH ×2 (07:51→19:47)
[2016-07-28] MEDS: Enoxaparin 30 MG/0.3 ML Syringe SUBCUT SCH (07:51)
[2016-07-28] MEDS: Nystatin Topical Powder 15 GM Bottle TOP SCH ×2 (07:54→19:47)
[2016-07-28] MEDS: Simvastatin 20 MG Tab PO SCH (19:47)
[2016-07-28] MEDS: Acetaminophen 325 MG Tab PO PRN (22:12)
[2016-07-29] MEDS: Carvedilol 3.125 MG Tab PO SCH ×2 (08:11→19:28)
[2016-07-29] MEDS: Nystatin Topical Powder 15 GM Bottle TOP SCH ×2 (08:12→19:58)
[2016-07-29] MEDS: cefTRIAXone 1 GM Vial IV SCH (08:12)
[2016-07-29] MEDS: Enoxaparin 30 MG/0.3 ML Syringe SUBCUT SCH (08:12)
[2016-07-29] MEDS: Furosemide 100 MG/10 ML SDV IVPUSH SCH ×2 (08:13→19:18)
[2016-07-29] MEDS: Simvastatin 20 MG Tab PO SCH (19:28)
[2016-07-29] MEDS: Acetaminophen 325 MG Tab PO PRN (20:31)
[2016-07-30] MEDS: Furosemide 100 MG/10 ML SDV IVPUSH SCH ×2 (08:29→19:37)
[2016-07-30] MEDS: cefTRIAXone 1 GM Vial IV SCH (08:29)
[2016-07-30] MEDS: Acetaminophen 325 MG Tab PO PRN ×2 (08:29→20:52)
[2016-07-30] MEDS: Enoxaparin 30 MG/0.3 ML Syringe SUBCUT SCH (08:30)
[2016-07-30] MEDS: Carvedilol 3.125 MG Tab PO SCH ×2 (08:30→19:43)
[2016-07-30] MEDS: Nystatin Topical Powder 15 GM Bottle TOP SCH ×2 (08:43→19:43)
[2016-07-30] MEDS: Simvastatin 20 MG Tab PO SCH (19:43)
[2016-07-31] MEDS: Acetaminophen 325 MG Tab PO PRN ×2 (01:14→22:19)
[2016-07-31] MEDS: Carvedilol 3.125 MG Tab PO SCH ×2 (08:13→19:36)
[2016-07-31] MEDS: Furosemide 100 MG/10 ML SDV IVPUSH SCH ×2 (08:16→19:36)
[2016-07-31] MEDS: cefTRIAXone 1 GM Vial IV SCH (08:20)
[2016-07-31] MEDS: Enoxaparin 30 MG/0.3 ML Syringe SUBCUT SCH (08:21)
[2016-07-31] MEDS: Nystatin Topical Powder 15 GM Bottle TOP SCH ×2 (09:41→19:37)
[2016-07-31] MEDS: Metolazone 5 MG Tab PO SCH (09:58)
[2016-07-31] MEDS: Simvastatin 20 MG Tab PO SCH (19:37)
[2016-08-01] MEDS: Acetaminophen 325 MG Tab PO PRN ×2 (03:29→22:25)
[2016-08-01] MEDS: cefTRIAXone 1 GM Vial IV SCH (08:04)
[2016-08-01] MEDS: Enoxaparin 30 MG/0.3 ML Syringe SUBCUT SCH (08:05)
[2016-08-01] MEDS: Carvedilol 3.125 MG Tab PO SCH ×2 (08:05→19:44)
[2016-08-01] MEDS: Furosemide 100 MG/10 ML SDV IVPUSH SCH ×2 (08:05→19:43)
[2016-08-01] MEDS: Nystatin Topical Powder 15 GM Bottle TOP SCH ×2 (08:06→19:44)
[2016-08-01] MEDS: Metolazone 5 MG Tab PO SCH (08:10)
--- NOTE | 2016-08-01 16:21 | PN ---
DATE: 08/01/2016 Umm continues to show evidence of fluid retention, and her weight continues to rise. We are not getting any diuresis at all, and she is having no more shortness of breath. She is still saturating in the 90s on anywhere from 2 to 3 L. lab work was done recently. Renal functions remain about the same, but her BNP has gone up from 10,000, now to over 28,000. She is not having any fevers. Blood pressures are holding. Sat down with her and nursing staff present, we talked at length about end-of-life care. She has made it very clear she wants to be a DNR with no transfer, nothing more aggressive done. At this time, we agreed to transfer to [facility] the [facility]. I will talk to her about possible hospice for end-of-life CHF, but plan will be to discharge tomorrow. DAVID/MIRELLA /[id number]
[2016-08-01] MEDS: Simvastatin 20 MG Tab PO SCH (19:44)
[2016-08-02] MEDS: Acetaminophen 325 MG Tab PO PRN (05:11)
[2016-08-02] MEDS: Morphine 2 MG/ML Syringe IVPUSH PRN (05:20)
[2016-08-02 07:27] VITALS: BP 119/58
[2016-08-02] MEDS: Furosemide 100 MG/10 ML SDV IVPUSH SCH (08:14)
[2016-08-02] MEDS: Enoxaparin 30 MG/0.3 ML Syringe SUBCUT SCH (08:16)
[2016-08-02] MEDS: Nystatin Topical Powder 15 GM Bottle TOP SCH (08:16)
[2016-08-02] MEDS: cefTRIAXone 1 GM Vial IV SCH (08:18)
[2016-08-02] MEDS: Metolazone 5 MG Tab PO SCH (08:23)
[2016-08-02] MEDS: Carvedilol 3.125 MG Tab PO SCH (08:30)
--- NOTE | 2016-08-03 07:07 | DISCH ---
ADMISSION DIAGNOSES: 1. End-stage congestive heart failure. 2. Chronic renal insufficiency. DISCHARGE DIAGNOSIS: 1. END-STAGE CONGESTIVE HEART FAILURE. 2. CHRONIC RENAL INSUFFICIENCY. HISTORY: The patient presented a few weeks ago to acute care with UTI and some heart failure symptoms. She was shocky with low blood pressure. She was given IV fluids, IV antibiotics, ultimately went into florid CHF and was transferred from acute care to swing bed for UTI and CHF. During her acute care stay, we had hard time getting her diuresed. Her weights have persistently went up, she is not responding to IV diuretics and she made it very clear she did not want transfer. She is a DNR patient, who has elected for comfort measures. SWING BED COURSE: The patient was given IV Lasix, while here we did start her on some metolazone as well. Her weight continue to incline. She is having marked diffuse edema. She is comfortable as she is on nasal cannula at 2 L and her sats were still in the mid 90s. She has not had any significant hypotension. We backed off her Coreg slightly from 6.25 to 3.125 mg b.i.d. She has been off her SAHRA inhibitor since being here. We are going to start her back on those along with Demadex instead of oral Lasix when she leaves. I am going to get a hospice consult for end of life cares. She is going to [facility] in the [facility] for comfort measures and end of life cares at this time. COMPLICATIONS: During her stay were none. CONSULTATIONS: PT. DISPOSITION: Transfer to [facility] in the [facility]. DAVID/MIRELLA /[id number]
== END 2016-08-02 10:35 | DRG 292 ==
LOC: CC.MS 12:05 → UNDOADMIN 12:09 → CC.MS 12:09
PROVIDERS: ADMIT Family Medicine; ATTEND Family Medicine
DX: I50.9 Heart failure, unspecified (principal); N17.9 Acute kidney failure, unspecified; N18.9 Chronic kidney disease, unspecified; Z66 Do not resuscitate; Z51.5 Encounter for palliative care; I95.9 Hypotension, unspecified; Z99.81 Dependence on supplemental oxygen; M19.90 Unspecified osteoarthritis, unspecified site; Z98.890 Other specified postprocedural states
CPT/HCPCS: 36415; 80048; 83880; 85025; 86140; 97110-GP; A9270-GY; J0696; J1650; J1940; J2270; J2405